=== PATIENT | female | born 1990 | race Caucasian/White ===

== ENCOUNTER 2018-02-05 09:17 | Emergency (ER) | END 2018-02-05 10:50 | disposition home or self-care (01) ==

== ENCOUNTER 2018-03-15 22:37 | Emergency (ER) | END 2018-03-16 03:31 | disposition left against medical advice (07) ==

== ENCOUNTER 2018-03-16 13:46 | Emergency (ER) | END 2018-03-16 17:25 | disposition home or self-care (01) ==